=== PATIENT | female | born 1990 | race Caucasian/White ===

== ENCOUNTER 2016-11-28 22:52 | Emergency (ER) | payer BC, OTHER ==
[~2016-11-28 22:52] MED LIST: AMOXICILLIN500 M1 PO; MAXALT MLT10 MG/TAB PO; MYLAN PO; NO MEDICATIONS; NORCO1 TAB 10/3 PO; PRENATAL1 TA1 PO; WELLBUTRIN100 MG PO
[2016-11-28] MEDS ORDERED: LEXAPRO20 MG (23:08)
== END 2016-11-29 00:04 | disposition home or self-care (01) ==
LOC: SED 22:52
DX: R11.2 Nausea with vomiting, unspecified (principal); R19.7 Diarrhea, unspecified; F17.210 Nicotine dependence, cigarettes, uncomplicated
CPT/HCPCS: 99282

== ENCOUNTER 2017-01-27 14:09 | Emergency (ER) | payer BC, OTHER ==
--- NOTE | ~2017-01-27 | CT2 ---
[facility] A Service of [facility] RADIOLOGY TEXT RESULTS PATIENT: DAVID TENORIO LOCATION: SED : [birth year] UNIT #: [id number] AGE: [address]: Donavon Peters MD SEX: F ORDER DR: [id number] [address] [address] [id number] E MR#: [id number] Acc #: [id number] NAME: DAVID TENORIO : 1990 SEX: F STUDY DATE/TIME: 01/27/2017 16:11 UNIT: SED ROOM: STUDY DESCRIPTION: CT Abd and Pelv W Cont Attending Physician: Donavon Peters M.D. Ordering Physician: Donavon Peters M.D. Primary Care Physician: Primary Care Physician No MEDICAL IMAGING REPORT This report is preliminary unless electronic signature is present. EXAM CT abdomen and pelvis INDICATIONS Right lower quadrant abdominal pain and cramping for [address] of the abdomen and pelvis with IV contrast. Coronal and sagittal reconstructions were obtained. This CT exam was performed with one or more of the following radiation dose reduction techniques: Automatic exposure control, adjustment of mA and/or kV according to patient size, and iterative reconstruction. COMPARISON None available. FINDINGS ABDOMEN: There is a low-attenuation mass in the medial left hepatic lobe. This measures 1.4 cm. This is probably a small hemangioma. The remaining solid abdominal organs enhance normally. The bowel is not dilated. Gallbladder is nondistended. The appendix is normal. The abdominal aorta is normal in caliber. There is incidental note of circumaortic renal veins. PELVIS: Uterus and ovaries are within normal limits. Patient has an IUD. Bladder is unremarkable. IMPRESSION 1. Negative CT of the abdomen and pelvis. 2. Normal appendix. 3. 1.4 cm lesion in the left hepatic lobe. This probably represents a small hemangioma, however, can be formally evaluated. Consider [facility] A Service of [facility] RADIOLOGY TEXT RESULTS PATIENT: DAVID TENORIO LOCATION: SED : 91 UNIT #: [id number] AGE: [address]: Donavon Peters MD SEX: F ORDER DR: initial evaluation with an ultrasound, however, the patient may ultimately require a hepatic protocol MRI to fully characterize. Dictated by... Bruno Garcia M.D. THIS IS AN ELECTRONICALLY VERIFIED REPORT Bruno Garcia M.D. at 01/28/2017 8:11 AM CARYN/patricio TD: 01/28/2017 03:04 JOB #: [id number] MEDICAL IMAGING REPORT Page 1 of 1
[~2017-01-27 14:09] MED LIST changes: +LEXAPRO20 MG
[2017-01-27 15:11] LABS: URINE SOURCE CLEAN CATCH
[2017-01-27 15:13] LABS: MICRO INDICATED? YES; URINE APPEARANCE CLEAR; URINE BILIRUBIN NEG (NEG); URINE BLOOD NEG (NEG); URINE COLOR YELLOW; URINE GLUCOSE NEG (NORM); URINE KETONE NEG (NEG); URINE LEUKOCYTE ESTERASE TRACE (NEG); URINE NITRATE NEG (NEG); URINE PROTEIN NEG (NEG)
[2017-01-27 15:14] LABS: CULTURE INDICATED? NO; URINE BACTERIA NEG (NEG); URINE MUCUS PRESENT; URINE RBC 0-2 /[HPF] (0-2); URINE SQUAMOUS EPITHELIAL CELL OCCAS /[HPF]
[2017-01-27 15:42] LABS: BASOPHIL# 0.1 X10e3 (0-0.3); BASOPHIL% 0.7 % (0-2.5); EOSINOPHIL# 0.2 X10e3 (0-0.7); EOSINOPHIL% 1.7 % (0.0-7.0); HEMATOCRIT 43.2 % (35.0-45.0); HEMOGLOBIN 14.6 gm/dL (12.0-16.0); LYMPHOCYTE# 3.4 X10e3 (1.0-3.5); LYMPHOCYTE% 34.3 % (17.0-45.0); MEAN CELL VOLUME 91.7 FL (83-96); MEAN CORPUSCULAR HEMOGLOBIN 31.1 PG (28-34); MEAN CORPUSCULAR HGB CONC 33.9 g/dL (30-36); MONOCYTE# 0.6 X10e3 (0-1.0); MONOCYTE% 6.5 % (3.0-12.0); NEUTROPHIL# 5.6 X10e3 (1.5-7.1); NEUTROPHIL% 56.8 % (40-75); PLATELET COUNT 198 X10e3 (140-420); RED BLOOD COUNT 4.71 X10e (3.90-5.30); RED CELL DISTRIBUTION WIDTH 13.6 % (11.0-15.5); WHITE BLOOD COUNT 9.9 X10e3 (4.0-10.5)
[2017-01-27 15:44] LABS: DIFF IND NO
[2017-01-27 15:57] LABS: BUN/CREATININE RATIO 12.5; CALCIUM SERUM 9.1 mg/dL (8.4-10.2); CREATININE SERUM 0.8 mg/dL (0.6-1.4); GLOM FILT RATE Estimated 102.6 mL/min (>60); POTASSIUM 3.9 mmol/L (3.5-5.1)
== END 2017-01-27 17:50 | disposition home or self-care (01) ==
LOC: SED 14:09
PROVIDERS: Emergency Medicine
DX: R10.2 Pelvic and perineal pain (principal); Z97.5 Presence of (intrauterine) contraceptive device
CPT/HCPCS: 36415; 74177; 80048; 81003; 84703; 85025; 99284; J1170; Q9967

== ENCOUNTER 2017-03-31 14:05 | Emergency (ER) | payer BC, OTHER ==
[~2017-03-31] VITALS: Ht 160 cm; Wt 72.6 kg
== END 2017-03-31 15:39 | disposition home or self-care (01) ==
LOC: SED 14:05
DX: H66.91 Otitis media, unspecified, right ear (principal); H60.91 Unspecified otitis externa, right ear; F17.200 Nicotine dependence, unspecified, uncomplicated
CPT/HCPCS: 99283